=== PATIENT | male | born 1950 | race Caucasian/White ===

== ENCOUNTER 2024-01-05 07:30 | Day surgery (SDC) | payer MEDICARE, OTHER ==
[2023-12-31 14:52] LABS: BASOPHILS % (AUTO) 0.8 % (0-1); EOSINOPHILS # (AUTO) 0.1 X10'3 (0-0.9); LYMPHOCYTES # (AUTO) 2.2 X10'3 (1.1-4.8); LYMPHOCYTES % (AUTO) 35.9 % (21-51); MEAN CORPUSCULAR HEMOGLOBIN 31.8 PG (27.0-31.0); MEAN CORPUSCULAR HGB CONC 33.5 g/dL (33.0-36.5); MEAN PLATELET VOLUME 7.1 FL (7.4-10.4); MONOCYTES # (AUTO) 0.6 X10'3 (0-0.9); MONOCYTES % (AUTO) 9.5 % (2-12); NEUTROPHILS # (AUTO) 3.2 X10'3 (1.8-7.7); NEUTROPHILS % (AUTO) 52.8 % (42-75); PRE OP HEMATOCRIT 53.4 % (42.0-52.0); PRE OP HEMOGLOBIN 17.9 g/dL (14.0-17.9); PRE OP PLATELET COUNT 188 X10'3 (140-440); RED BLOOD COUNT 5.62 X10'6 (4.70-6.10); RED CELL DISTRIBUTION WIDTH 14.2 % (11.5-14.5)
[2023-12-31 15:04] LABS: ALBUMIN 3.5 G/DL (3.4-5.0); ALBUMIN/GLOBULIN RATIO 0.9 (1.1-1.5); ALKALINE PHOSPHATASE 54 IU/L (46-116); BLOOD UREA NITROGEN 20 MG/DL (7-18); BUN/CREATININE RATIO 20.2 (10.0-20.0); CALCIUM 9.1 MG/DL (8.5-10.1); CHLORIDE 103 MMOL/L (99-107); CREATININE 0.99 MG/DL (0.60-1.10); PRE OP ALT 37 U/L (30-65); PRE OP ANION GAP 8 (8-16); PRE OP AST 22 U/L (10-37); PRE OP BILIRUB, TOTAL 0.8 MG/DL (0.0-1.0); PRE OP GLUCOSE 96 MG/DL (70-104); PRE OP POTASSIUM 4.5 MMOL/L (3.4-5.1); PRE OP SODIUM 141 MMOL/L (135-145); TOTAL CARBON DIOXIDE 29.6 MMOL/L (24-32); TOTAL PROTEIN 7.3 G/DL (6.4-8.2); eGFR 74 ML/MIN
[2023-12-31 15:22] LABS: BILIRUBIN,URINE NEGATIVE (Neg); CLARITY,URINE CLEAR (Clear); COLOR,URINE YELLOW (Yellow); GLUCOSE, URINE NEGATIVE (Neg); KETONES,URINE TRACE mg/dl (Neg); LEUKOCYTE ESTERASE ,URINE NEGATIVE (Neg); NITRITES, URINE NEGATIVE (Neg); OCCULT BLOOD,URINE NEGATIVE (Neg); PROTEIN,URINE NEGATIVE (Neg); UROBILINOGEN,URINE 0.2 E.U/dL (0.2-1.0)
[2023-12-31 15:24] LABS: UA COLLECTION TYPE CLN CATCH MIDSTREAM
[2024-01-05] VITALS (10 sets, daily range): BP systolic 130–159; BP diastolic 68–90; PULSE 57–74; RESP 10–16; TEMP 98.1; O2SAT 94–100
[~2024-01-05] VITALS: Ht 180.3 cm; Wt 106.0 kg
[~2024-01-05 07:30] MED LIST: ALLO300T8 PO; ALPHA LIPOIC ACID PO; CELE-127 PO; FISH OIL PO; GLUC-99 PO; METAMUCIL; MVI; RAW CALCIUM PO; TESTOSTERONE SQ; THYR60TA2 PO; VITAMIN B5; VITAMIN D3; [UNRECOGNIZED DRUG - CODE]; [UNRECOGNIZED DRUG - OTHER]
[2024-01-05] MEDS: famotidine 20mg tablet PO ONE (08:43)
[2024-01-05] MEDS: cefazolin 2gm/D5W 100mL 100 ML IV ONE (08:44)
[2024-01-05] MEDS: ringers solution, lacted 1,000 ML IV SCH (08:44)
[2024-01-05] MEDS: bacitracin 15gm ointment TP ONE (10:03)
[2024-01-05] MEDS: BUPIVAcaine 2.5mg/ml inj 50ml vial (contains preservative) ONE (10:03)
[2024-01-05] MEDS ORDERED: sevoflurane 250ml liquid IH ONE (10:31)
[2024-01-05] MEDS ORDERED: fentaNYL/PF 50MCG/1 ML 2ML syringe ONE (10:31)
[2024-01-05] MEDS ORDERED: rocuronium 10mg/ml inj IV ONE (10:31)
[2024-01-05] MEDS ORDERED: midazolam 1 mg/ML 2ml injection ONE (10:31)
[2024-01-05] MEDS ORDERED: dexamethasone sod phosphate 4mg/ml inj. ONE (11:14)
[2024-01-05] MEDS ORDERED: propofol inj 20 ML IV ONE (11:14)
[2024-01-05] MEDS ORDERED: acetaminophen 1,000mg/100ml IV 100 ML IV ONE (11:14)
[2024-01-05] MEDS ORDERED: ondansetron/PF 4mg/2ml inj ONE (11:14)
[2024-01-05] MEDS ORDERED: neostigmine methylsulfate 1 MG/ML 10ml vial ONE (11:36)
[2024-01-05] MEDS ORDERED: glycopyrrolate 0.2mg/ml inj ONE (11:36)
[2024-01-05] MEDS ORDERED: morphine 4 MG/ML inj SYRINge IV PRN (12:00)
[2024-01-05] MEDS ORDERED: ondansetron/PF 4mg/2ml inj IV PRN (12:00)
[2024-01-05] MEDS ORDERED: ringers solution, lacted 1,000 ML IV SCH (12:00)
[2024-01-05] MEDS ORDERED: proCHLORperazine 10 MG/2 ml inj IV PRN (12:00)
[2024-01-05] MEDS ORDERED: meperidine/PF 25mg/ml syringe IV PRN ×2 (12:00)
[2024-01-05] MEDS ORDERED: morphine 2 MG/ML inj. syringe IV PRN (12:00)
[2024-01-05] MEDS: meperidine/PF 25mg/ml syringe IV PRN (12:34)
== END 2024-01-05 13:36 | disposition home or self-care (01) ==
LOC: PAS 07:30
PROVIDERS: ATTEND Surgery
DX: K40.90 Unilateral inguinal hernia, without obstruction or gangrene, not specified as recurrent (principal); D17.6 Benign lipomatous neoplasm of spermatic cord; E03.9 Hypothyroidism, unspecified; M10.9 Gout, unspecified; G47.33 Obstructive sleep apnea (adult) (pediatric); M19.90 Unspecified osteoarthritis, unspecified site; Z96.653 Presence of artificial knee joint, bilateral; Z90.89 Acquired absence of other organs; Z98.890 Other specified postprocedural states; Z79.890 Hormone replacement therapy; Z79.899 Other long term (current) drug therapy
CPT/HCPCS: 36415; 49505; 80053; 81003; 82948; 85025; 93005; A4215; A4618; A7000; C1781; J0131; J0690; J1100; J2175; J2250; J2405; J2704; J2710; J3010; J3490; J7030; J7120; Z7506; Z7508; Z7512; Z7610; 88304